=== PATIENT | male | born 1950 | race Caucasian/White ===

== ENCOUNTER → 2016-12-15 | Outpatient (CLI) | payer BC ==
--- NOTE | 2016-12-17 09:19 | SS ---
ADMIT: 12/15/2016 RM/LOC: [facility] MR#: [id number] [place], [place] [id number] INGRIDJOSIE MARTIN [address] [place] [address] Sleep Study SEX: M AGE: 66 : 1950 STUDY DATE: 12/15/2016 CLINICAL HISTORY: A 66-year-old male, symptoms of snoring, witnessed apneas, in the sleep lab for evaluation of obstructive sleep apnea. TECHNICAL DESCRIPTION: Split-night polysomnogram performed on night of 12/15/2016, attended by a trained fastener technologist. DIAGNOSTIC POLYSOMNOGRAM FINDINGS: SLEEP: Total time in bed is 142.5 minutes, total sleep time 125.5, sleep efficiency 88.1%. 87.1% hours spent in stage II sleep, 8.2% hours spent in stage REM. BREATHING: Moderate obstructive sleep apnea with apnea-hypopnea of 18.2. During the study, there were 11 obstructive apneas and 27 obstructive hypopneas noted. OXYGEN SATURATION: Mean sleeping oxygen 90%, lowest oxygen 81%, 20.7% time was spent in saturation of 80% to 89%. CARDIAC: Average heart rate is 65 beats per minute. MOVEMENTS/POSITION: During the study, the patient slept in supine lateral position with no significant leg movements. CPAP TITRATION FINDINGS: TITRATION DESCRIPTION: The patient was titrated from 5 cm CPAP to 12 cm of CPAP. SLEEP: Total time in bed on CPAP 276.5 minutes, total sleep time 261 minutes, sleep efficiency 94.4%. 56.9% hours spent in stage II sleep, 34.6% time was spent in stage REM suggestive of REM rebound. BREATHING: Excellent resolution of obstructive sleep apnea was seen on CPAP 12 cm. The patient was seen in REM sleep in supine position with complete resolution of obstructive events. OXYGEN SATURATION: Mean sleeping oxygen saturation 92%. CARDIAC: Normal sinus rhythm noted. MOVEMENTS/POSITION: During the study, the patient slept in the supine lateral position with no significant leg movements. ADMIT: 12/15/2016 RM/LOC: [facility] MR#: [id number] [id number] JOSIE JAVIER [address] [place] [address] Sleep Study SEX: M AGE: 66 : 1950 IMPRESSION AND PLAN: Moderate obstructive sleep apnea with apnea-hypopnea index of 18.2. Recommend using CPAP 12 cm with a standard AirFit F10 nasal mask. Recommend losing weight, avoiding sedatives and alcohol. Refrain from driving if excessively sleepy. Excellent resolution of obstructive sleep apnea was seen on CPAP 12 cm. The patient was seen in REM sleep in supine position. Recommend using CPAP 12 cm mask. As mentioned above, recommend losing weight, avoiding sedatives and alcohol. Refrain from driving if excessively sleepy. Recommend avoiding sleeping in supine position. Clinical correlation needed. Compliance followup is recommended. Lukas Gong MD/ melodie JOB #: [id number] CC: Komal Varghese MD, Attending Physician Komal Varghese MD, Family Physician Komal Varghese MD
== END | disposition home or self-care (01) ==
LOC: RESC 20:30
DX: R06.81 Apnea, not elsewhere classified (principal); R40.0 Somnolence; G47.33 Obstructive sleep apnea (adult) (pediatric)